=== PATIENT | female | born 1975 | race African-American/Black ===

== ENCOUNTER 2025-05-15 09:09 | Emergency (ER) | payer OTHER ==
[~2025-05-15] VITALS: Ht 156.2 cm; Wt 104.5 kg
[2025-05-15 09:15] VITALS: BP 129/69; PULSE 76; RESP 18; TEMP 97.9; O2SAT 98
[2025-05-15] MEDS ORDERED: ACET-2247 PO (09:19)
[2025-05-15] MEDS ORDERED: ACET-3385 PO (09:32)
[2025-05-15] MEDS ORDERED: IBUP-1492 PO (09:32)
[2025-05-15] MEDS: ACETAMINOPHEN 500 MG TABLET PO ONE (09:43)
[2025-05-15] MEDS: KETOROLAC TROMETHAMINE 30 MG/ML VIAL IM ONE (09:44)
== END 2025-05-15 10:09 | disposition home or self-care (01) ==
LOC: EMS 09:36
DX: M54.12 Radiculopathy, cervical region (principal); F17.210 Nicotine dependence, cigarettes, uncomplicated; Z79.899 Other long term (current) drug therapy; W19.XXXA Unspecified fall, initial encounter
CPT/HCPCS: 99283; 96372; J1885